=== PATIENT | female | born 1980 | race Two or more races ===

== ENCOUNTER 2017-05-11 09:23 | Outpatient (CLI) | payer SELFPAY | END 2017-05-11 09:24 | disposition home or self-care (01) | LOC: LAB 09:23 | DX: Z02.81 Encounter for paternity testing (principal) ==

== ENCOUNTER 2020-03-15 21:53 | Emergency (ER) | payer OTHER ==
--- NOTE | 2020-03-15 22:28 | ED Physician Documentation ---
PD HPI ABD PAIN - Stated complaint Stated Complaint: SIDE PX - Chief complaint Chief Complaint: Abd Pain - History obtained from History obtained from: Patient - History of Present Illness Timing - onset: How many days ago (3-4 days of some mid to right lower abd pain intermittently with noted hematuria, without dysuria. Talked with PMD Sunday (3 days ago) and was to get UA in office but the lab part of the office was closed when she got there. RLQ pain worse today.) Timing - details: Gradual onset, Still present (more consistent RLQ pain today, but no back pain.), Waxing and waning Quality: Cramping, Aching, Pain Location: RLQ, Suprapubic Radiation: Lower back. No: Chest, Right flank Improved by: No: Eating, Laying still, Position Worsened by: No: Eating, Moving, Breathing, Position Associated symptoms: Nausea, Hematuria. No: Fever, Vomiting, Diarrhea, Constipation, Dysuria, Loss of appetite, Vaginal bleeding, Vaginal dc Similar symptoms before: Has not had sx before Recently seen: Clinic (had [facility] appt 3 days ago without Rx. Was to get UA done but lab part of office was closed when she got there, so they did not take her urine.) Review of Systems Constitutional: denies: Fever, Chills Nose: denies: Rhinorrhea / runny nose, Congestion Throat: denies: Sore throat Respiratory: denies: Cough : reports: Hematuria. denies: Dysuria, Frequency, Discharge, Missed period Skin: denies: Rash, Lesions Neurologic: denies: Generalized weakness, Near syncope PD PAST MEDICAL HISTORY - Past Medical History Cardiovascular: None Respiratory: None Neuro: None Endocrine/Autoimmune: None GI: None : None - Present Medications Home Medications: Ambulatory Orders Medication Instructions Recorded Confirmed Sertraline HCl 200 mg PO DAILY 03/15/20 03/15/20 Terbinafine [Lamisil] 250 mg PO DAILY 03/15/20 03/15/20 buPROPion HCl [Wellbutrin Sr] 200 mg PO BID 03/15/20 03/15/20 Naproxen Sodium [Anaprox Ds] 550 mg PO BID #20 tablet 03/16/20 Oxycodone HCl/Acetaminophen 1 each PO Q6H PRN #10 tablet 03/16/20 [Percocet 5-325 mg Tablet] - Allergies Allergies/Adverse Reactions: Allergies Allergy/AdvReac Type Severity Reaction Status Date / Time No Known Drug Allergies Allergy Verified 03/15/20 21:58 PD ED PE NORMAL - Vitals Vital signs reviewed: Yes - General General: Alert and oriented X 3, Well developed/nourished, Other (appears in pain) - Neck Neck: Supple, no meningeal sign, No adenopathy - Cardiac Cardiac: RRR, No murmur - Respiratory Respiratory: Clear bilaterally - Abdomen Abdomen: Normal bowel sounds, Soft, Non distended, No organomegaly, Other (lower abd tender suprapubic and RLQ with some guarding but no rebound nor percussion tender. No flank tenderness. ) - Female Female : Deferred - Rectal Rectal: Deferred - Back Back: No CVA TTP - Derm Derm: Normal color, Warm and dry, No rash - Extremities Extremities: No tenderness to palpate, Normal ROM s pain - Neuro Neuro: Alert and oriented X 3, No motor deficit, Normal speech - Psych Psych: Normal mood, Normal affect Results - Vitals Vitals: Vital Signs - 24 hr 03/15/20 03/15/20 03/16/20 21:58 22:44 00:13 Temperature 37.1 C Heart Rate 96 88 85 Respiratory 16 16 Rate Blood Pressure 117/64 112/71 104/74 O2 Saturation 100 98 97 03/16/20 01:40 Temperature Heart Rate 77 Respiratory 18 Rate Blood Pressure 101/66 O2 Saturation 97 Oxygen O2 Source Room air - Labs Labs: Laboratory Tests 03/15/20 03/15/20 03/15/20 22:25 22:25 22:55 WBC 10.5 RBC 4.33 Hgb 12.0 Hct 36.1 L MCV 83.4 MCH 27.7 MCHC 33.2 RDW 13.2 Plt Count 258 MPV 9.5 Neut # (Auto) 7.1 H Lymph # (Auto) 2.3 Drew # (Auto) 0.8 Eos # (Auto) 0.2 Baso # (Auto) 0.1 Absolute Nucleated RBC 0.00 Nucleated RBC % 0.0 Sodium 134 L Potassium 3.8 Chloride 103 Carbon Dioxide 21 Anion Gap 10.0 BUN 13 Creatinine 1.0 Estimated GFR (MDRD) 61 L Glucose 99 Calcium 9.1 Total Bilirubin 0.5 AST 17 ALT 13 Alkaline Phosphatase 46 Total Protein 7.3 Albumin 4.3 Globulin 3.0 Albumin/Globulin Ratio 1.4 Lipase 21 L Urine Color YELLOW Urine Clarity SL. CLOUDY Urine pH 6.0 Ur Specific [place] 1.020 Urine Protein NEGATIVE Urine Glucose (UA) NEGATIVE Urine Ketones NEGATIVE Urine Occult Blood LARGE H Urine Nitrite NEGATIVE Urine Bilirubin NEGATIVE Urine Urobilinogen 0.2 (NORMAL) Ur Leukocyte Esterase NEGATIVE Urine RBC 11-25 H Urine WBC 0-3 Ur Squamous Epith Cells MOD Squamous H Urine Bacteria Rare Urine Mucus Moderate Strands Ur Microscopic Review INDICATED Urine Culture Comments NOT INDICATED Urine HCG, Qual NEGATIVE - Rads (name of study) pelvic U/S Radiology: Prelim report reviewed (2 cm right complex ovarian cyst without free fluid. Normal ovarian flow bilat. recommend follow up in 2-3 months. Mild right hydronephrosis. ), See rad report abd/pelvic CT Radiology: Prelim report reviewed (4 mm stone at UVJ with mild right hydronephrosis. Appendix not seen. No diverticulitis. ), See rad report PD MEDICAL DECISION MAKING - ED course Complexity details: reviewed results (U/S did not give answer to pain, so got CT after shared discussion with pt. This showed stone at UVJ, which is c/w her area of pain and the hematuria. Interesting she did not have flank pain despite some hydro. ), re-evaluated patient (pain improved with IV meds. ), considered differential, d/w patient Departure - Departure Disposition: 01 Home, Self Care Clinical Impression: Right lower quadrant abdominal pain, Ureterolithiasis Ovarian cyst Qualifiers: Laterality: right Qualified Code(s): N83.201 - Unspecified ovarian cyst, right side Condition: Stable Record reviewed to determine appropriate education?: Yes Instructions: ED Stone Renal W Colic Prescriptions: Naproxen Sodium [Anaprox Ds] 550 mg PO BID #20 tablet Oxycodone HCl/Acetaminophen [Percocet 5-325 mg Tablet] 1 each PO Q6H PRN #10 tablet PRN Reason: pain Comments: Your pain appears to be coming from a small kidney stone in the ureter almost into the bladder. It is 4 mm and typically will pass over several days at this size. Use some anti-inflammatories such as naproxen twice daily with food until this resolves. Food. Stay well-hydrated. No reason to over hydrate however. Add Tylenol every 4-6 hours if needed for pain or oxycodone if needed for worse pain. Follow-up with your primary care if not improved over the next several days return if worse. The ultrasound did show a 2 cm cyst on your right ovary. Recommendation could be to follow-up with your primary and potentially we image in a few months to ensure its resolved. Discharge Date/Time: 03/16/20 01:56
[2020-03-15 22:37] LABS: BASOPHILS # (AUTO) 0.1 10^3/uL (0.0-0.1); BASOPHILS % (AUTO) 0.7 %; EOSINOPHILS # (AUTO) 0.2 10^3/uL (0.0-0.7); EOSINOPHILS % (AUTO) 1.8 %; LYMPHOCYTES # (AUTO) 2.3 10^3/uL (1.5-3.5); LYMPHOCYTES % (AUTO) 22.3 %; MEAN CORPUSCULAR HEMOGLOBIN 27.7 pg (27.0-31.0); MEAN CORPUSCULAR HGB CONC 33.2 g/dL (32.0-36.0); MEAN CORPUSCULAR VOLUME 83.4 fL (81.0-99.0); MEAN PLATELET VOLUME 9.5 fL (7.9-10.8); MONOCYTES # (AUTO) 0.8 10^3/uL (0.0-1.0); MONOCYTES % (AUTO) 7.5 %; NEUTROPHILS # (AUTO) 7.1 10^3/uL (1.5-6.6); NEUTROPHILS % (AUTO) 67.2 %; PLT - PLATELET COUNT 258 10^3/uL (130-450); RED BLOOD COUNT 4.33 10^6/uL (4.20-5.40); RED CELL DISTRIBUTION WIDTH 13.2 % (12.0-15.0); WHITE BLOOD COUNT 10.5 x10^3/uL (4.8-10.8)
[2020-03-15] MEDS ORDERED: KETOROLAC 15 MG/ML VIAL IVP STA (22:46)
[2020-03-15] MEDS ORDERED: SODIUM CHLORIDE 0.9% 1,000 ML IV STA (22:46)
[2020-03-15] MEDS ORDERED: MORPHINE 2 MG/ML CARPUJECT IVP STA (22:46)
[2020-03-15 22:51] LABS: ALBUMIN 4.3 g/dL (3.2-5.5); ALBUMIN/GLOBULIN RATIO 1.4 (1.0-2.2); BILIRUBIN,TOTAL 0.5 mg/dL (0.2-1.0); CALCIUM 9.1 mg/dL (8.5-10.3); TOTAL PROTEIN 7.3 g/dL (6.7-8.2)
[2020-03-15 23:05] LABS: BILIRUBIN,URINE NEGATIVE (NEGATIVE); GLUCOSE, URINE (UA) NEGATIVE (NEGATIVE); KETONES,URINE (UA) NEGATIVE (NEGATIVE); LEUKOCYTE ESTERASE, URINE NEGATIVE (NEGATIVE); NITRITE,URINE NEGATIVE (NEGATIVE); OCCULT BLOOD,URINE LARGE (NEGATIVE); PROTEIN,URINE NEGATIVE (NEGATIVE); UROBILINOGEN,URINE 0.2 (NORMAL) E.U./dL (NORMAL)
[2020-03-15 23:06] LABS: CLARITY,URINE SL. CLOUDY (CLEAR); HCG UR QUAL NEGATIVE
[2020-03-15 23:13] LABS: BACTERIA,URINE Rare /HPF (None Seen); MUCUS,URINE Moderate Strands; SQUAMOUS EPITHELIAL CELL,UR MOD Squamous (<= Few)
[2020-03-16] MEDS ORDERED: IOVERSOL 320 100 ML VIAL IVP ONE ×2 (00:45→01:14)
[2020-03-16 01:40] VITALS: BP 101/66
[2020-03-16] MEDS ORDERED: oxyCODONE/ACET 5/325 Prepack 4 PO STA (01:46)
--- NOTE | 2020-03-16 08:04 | CT Report ---
PROCEDURE: Abdomen/Pelvis W INDICATIONS: RLQ pain since Sunday CONTRAST: IV CONTRAST: Optiray 320 ml: 100 PO CONTRAST: *NO PO CONTRAST TECHNIQUE: After the administration of intravenous contrast, 5 mm thick sections acquired from the diaphragms to the symphysis. 5 mm thick coronal and sagittal reformats were acquired. For radiation dose reducti on, the following was used: automated exposure control, adjustment of mA and/or kV according to atshia ent size. COMPARISON: None. FINDINGS: Image quality: Excellent. ABDOMEN: Lung bases: Lung bases are clear. Heart size is normal. Solid organs: Liver and spleen are normal in size and enhancement. Gallbladder is unremarkable. Bi liary system is non dilated. Pancreas enhances normally. No adrenal nodules. There is a mildly grupo yed right nephrogram with very mild right hydronephrosis. There is nonobstructive 4 mm stone at the l evel of the right ureterovesical junction. The left kidney and ureter are unremarkable. Peritoneum and bowel: Bowel loops demonstrate normal wall thickness and caliber. No free fluid or a ir. Nodes and vessels: No retroperitoneal or mesenteric adenopathy by size criteria. Aorta and inferior vena cava are normal in size. 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 Miscellaneous: No ventral hernias. PELVIS: Genitourinary: Bladder wall thickness is normal. Miscellaneous: No inguinal hernias or adenopathy. Extensive pelvic varicosities, collapsed right ov silvia cyst. Bones: No suspicious bony lesions. No vertebral body compression fractures. IMPRESSION: 1. A 4 mm stone obstructs the right ureter to level right ureterovesical junction, resulting in very mild right hydronephrosis and a mildly delayed right nephrogram. 2. Incidental note made of left gonadal vein reflux and extensive pelvic varicosities. 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 A preliminary report with the above findings was provided at the time of the study by [facility]. Reviewed by: Frederic Bran MD on 03/16/2020 8:03 AM RUST Approved by: Frederic Bran MD on 03/16/2020 8:03 AM PST Station ID: [id number]
--- NOTE | 2020-03-16 08:41 | Ultrasound Report ---
PROCEDURE: Pelvic w/Transvag+Doppler Comp INDICATIONS: lower abd pain for 3 days TECHNIQUE: Real-time scanning was performed of the pelvic organs, with image documentation. Additional endovagi nal scanning was necessary due to incomplete visualization of the adnexal and endometrial structures by transabdominal scanning. COMPARISON: None. FINDINGS: Transabdominal scanning: Limited scanning through the kidneys shows no hydronephrosis. No pathologi c free abdominal or pelvic fluid. Endovaginal scanning: Uterus: Uterus is normal in size at 5.2 x 6.0 x 9.7 cm. The endometrium measures 10 mm in combined thickness. Ovaries: The right ovary measures 1.8 x 2.6 x 3.5 cm. There are a few follicles in the right ovary. There is a complex right ovarian cyst measuring 2 cm with some internal flow. Left ovary measures 1.5 x 2.0 x 2.1 cm and is normal. IMPRESSION: Complex right ovarian cyst with a vascular component. This is most likely physiologic follicular or h emorrhagic cyst. Follow-up in 4-6 weeks recommended to document resolution. Reviewed by: Valentín Bean MD on 03/16/2020 8:40 AM PST Approved by: aVlentín Bean MD on 03/16/2020 8:40 AM PST Station ID: [id number]
== END 2020-03-16 01:56 | disposition home or self-care (01) ==
LOC: ED 21:53
DX: N13.2 Hydronephrosis with renal and ureteral calculous obstruction (principal); N83.201 Unspecified ovarian cyst, right side; I86.2 Pelvic varices
CPT/HCPCS: 36415; 74177; 76830; 76856; 80053; 81001; 81025; 83690; 85025; 93975; 96361; 96374; 96375; 99284; Q9967; 81003; 87086